=== PATIENT | female | born 1985 | race Caucasian/White ===

== ENCOUNTER 2019-04-13 15:11 | Emergency (ER) | payer BC ==
[~2019-04-13] VITALS: Ht 154.9 cm; Wt 108.5 kg
[2019-04-13 15:14] VITALS: BP 138/73; PULSE 110; RESP 18; Ht 154.9 cm; Wt 108.5 kg
[2019-04-13] MEDS ORDERED: VALA500T PO (16:20)
[2019-04-13] MEDS ORDERED: MINE3.5O RIGHT EYE (16:20)
[2019-04-13] MEDS ORDERED: DEXT15DR5 OP (16:20)
[2019-04-13] MEDS ORDERED: PRED20TA PO (16:20)
--- NOTE | 2019-04-13 16:35 | ERD ---
ER Documentation Chief Complaint Chief Complaint RIGHT SIDED FACIAL NUMBNESS X3 DAYS HPI 33-year-old female with past medical history of hypertension, HLD, diabetes type 2 who presents with complaint of right facial numbness over the past 3 days. Patient states that began abruptly when she began have sensation of numbness to right side of face. With inability to smile symmetrically, raise right eyebrow. She otherwise denies facial or eye pain with movement, dental pain, dysphagia, odynophagia, alterations in taste,chest pain, shortness of breath, dyspnea, right-sided upper or lower extremity weakness, recent travel, sick contacts. Has not taken any new medications and denies any history of CVA or similar symptoms. ROS All systems reviewed and are negative except as per history of present illness. Medications Home Meds Active Scripts Dextran 70/Hypromellose (ARTIFICIAL TEARS EYE DROPS) 15 Ml Drops, 15 ML OP Q2H for 30 Days, BOTTLE Prov:JEUDINE,GETHO PA-C 04/13/19 Mineral Oil/Petrolatum,White (Refresh P.m. Ointment) 3.5 Gm Oint..gm., 1 APPLIC RIGHT EYE Q4 for 30 Days, #1 TUB Prov:JEUDINE,GETHO PA-C 04/13/19 valAcyclovir Hcl* (valACYclovir Hcl*) 500 Mg Tablet, 1000 MG PO TID for 7 Days, TAB Prov:JEUDINE,GETHO PA-C 04/13/19 Prednisone* (Prednisone*) 20 Mg Tab, 60 MG PO DAILY for 7 Days, TAB Prov:JEUDINE,GETHO PA-C 04/13/19 PMhx/Soc Medical and Surgical Hx: pt denies Surgical Hx Hx Cardiac Disorders: Yes (HTN) Hx Psychiatric Problems: Yes (SCHIZO) Hx Miscellaneous Medical Probl: Yes (DM, HIGH FANY) FmHx Family History: diabetes, coronary disease Physical Exam Vitals Vital Signs Date Temp Pulse Resp B/P (MAP) Pulse Ox O2 O2 Flow FiO2 Time Delivery Rate 04/13/19 98.3 110 18 138/73 98 15:14 (94) Physical Exam I have reviewed the triage vital signs. Const: Well nourished, well developed, appears stated age Eyes: PERRL, no conjunctival injection HENT: NCAT, Neck supple without meningismus CV: RRR, Warm, well-perfused extremities RESP: CTAB, Unlabored respiratory effort GI: soft, non-tender, non-distended, no masses MSK: No gross deformities appreciated, upper extremities bilaterally 5 out of 5 strength, bilateral lower extremities 5+ strength, patient able to take multiple steps in examination room, normal gait Skin: Warm, dry. No rashes Neuro: Neuro: M/S: Alert and oriented Face: EOMI, face and pharynx with normal sensation, inability to raise right eyebrow, smile asymmetric on the right, inability to the left corner of mouth on the right, inability to wrinkle forehead,cranial nerve maintained, outward gaze maintained, R side face SILT Motor: Normal strength throughout Sensation: Normal sensation throughout Speech: Normal Cerebel: Normal coordination Normal gait Normal finger to nose DTR: 2+ and symmetric upper/lower extremities Psych: Appropriate mood and affect. Results 24 hrs Laboratory Tests Test 04/13/19 16:28 Bedside Glucose 156 mg/dL Procedures/MDM 33-year-old female who presents with complaint of right facial numbness. Symptoms and exam consistent with acute Pond's palsy. Despite risk factors I have low suspicion for central neurological process such as CVA. I have low suspicion for an old immune or muscular disorder causing her symptoms. I feel no further work-up or imaging is warranted at this time. Patient will be discharged with appropriate medications, advised to follow-up with PMD for continued care and/or referral to specialist. Case discussed with attending of record. Joint decision making made with patient regarding administration of steroids given diabetic. She is agreeable to the steroid treatment and agrees to more closely monitor her blood glucose. Follow-up with her PMD. We will discharge with course of high-dose steroids, valacyclovir in case this is related to herpes infection, artificial tears, refresh p.m. ointment, patient given strict instructions regarding appropriate care for Pond's palsy diagnosis. This includes eye care with rewriting drops as well as eye taping. Explained precautions and medications detail to patient for approximately 10 minutes. DISPOSITION PLAN: We discussed follow up with the patient's primary care doctor within 24 to 48 hours. Patient counseled regarding my diagnostic impression and care plan. Prior to discharge all questions answered. Pt agrees with treatment plan and understands strict return precautions. Precautionary instructions provided including instructions to return to the ER if not improving or for any worsening or changing symptoms or concerns. Disclaimer: Inadvertent spelling and grammatical errors are likely due to EHR/dictation software use and do not reflect on the overall quality of patient care. Also, please note that the electronic time recorded on this note does not necessarily reflect the actual time of the patient encounter. Departure Diagnosis: Primary Impression: Pond's palsy Condition: Stable KATLYN PORTER PA-C Apr 13, 2019 16:35
== END 2019-04-13 17:02 | disposition home or self-care (01) ==
LOC: FTE 15:11
DX: G51.0 Bell's palsy (principal); I10 Essential (primary) hypertension; E11.9 Type 2 diabetes mellitus without complications
CPT/HCPCS: 82962; Z7502; 99283